=== PATIENT | female | born 1990 | race Caucasian/White ===

== ENCOUNTER → 2024-12-24 07:28 | Outpatient (REF) | payer OTHER, SELFPAY | LOC: REG 07:28 | PROVIDERS: ATTENDING PHYSICIAN Physician Assistant Medical | DX: M54.50 Low back pain, unspecified (principal) | CPT/HCPCS: 72110; 73502 ==

== ENCOUNTER 2025-01-04 11:26 | Emergency (ER) | payer OTHER, SELFPAY ==
[2025-01-04 11:30] VITALS: BP 127/80
[2025-01-04 15:44] VITALS: BP 120/91
--- NOTE | 2025-01-04 16:10 | ED.GENMED ---
History of Present Illness
General
Chief Complaint: Back Pain
Source: patient
Exam Limitations: none
Time Seen by Provider: 01/04/25 15:44
Nursing documentation reviewed up to this point in time: agreed with
History of Present Illness
History of Present Illness:
Patient is a 34-year-old female who presents to the ER complaining of worsening low back pain. She has had low back pain for the past 1 month. She feels pain across the lumbar region and into her left buttocks. She has seen her family doctor and
had an outpatient x-ray. She is scheduled for her first appointment for physical therapy tomorrow and is scheduled for an MRI in February. She has been on 2 separate doses of steroids. Initially she was prescribed a Medrol Dosepak and then
prescribed a second higher tapered dose.
Currently she is taking ibuprofen but reports pain has gotten progressively worse. She denies any recent injections. She had an epidural however that was 5 months ago
She denies any saddle paresthesia she reports she does feel pain in her hips when she walks and she feels at times that her head legs feel heavy. She denies any numbness tingling. Denies any bowel or bladder incontinence.
Denies any trauma fever chills. Denies any abdominal pain urinary frequency urgency dysuria.
She does report that she has 5-month-old twins and she carries both of her twins on each hip.
Pt had tubal ligation with her last in Jul.
Past History
Past History
ED Past Medical History: Psychiatric (Anxiety, Depression) and Other (Internal hemorrhoids, anal fissure, anal pain, Dr. Delicia hawthorne, Ovarian cyst)
ED Past Surgical History: Orthopedic ( Driss Carpal tunnel surgery 2017m leg lift, Cyst removed left wrist), Tonsilectomy and Other (Gastric bypass surgery with duodenal switch in 10/2018, tummy tuck 06/2020 Anal fissure, Breast augmentation, )
Social History
Tobacco: Smoker
Alcohol: None
Personal:
Living: with family
Employment: Employed
Family History
Family History: Other (Noncontributory)
Review of Systems
Review of Systems
Allergies reviewed?: Yes
Other source history: family
All Other Systems: ROS reviewed and negative except as documented in HPI and ROS
Phy Exam
General Physical Exam
General Presentation: no apparent distress
General age: appears stated age
General Skin: warm and dry
General Habitus: normal
General Mental: alert
General Hydration: appears well hydrated
Neurological Exam
Neurological Exam: alert, oriented x3, no motor deficits, no sensory deficits and other (Bilateral patellar reflexes; steady gait)
Jarvis Coma Scale
Eye Opening: Spontaneous
Verbal Response: Oriented
Motor Response: Obeys Commands
GCS Total Score: 15
Musculoskeletal Exam
Musculoskeletal Exam: other (Normal inspection to lumbar region tender throughout the lumbar region and left lateral lumbar region as well, no erythema to back or ecchymosis.)
Skin Exam
Skin Exam: normal color and warm/dry
Psychiatric Exam
Psychiatric Exam: normal mood/affect
Course
Orders/Labs/Results
Orders:
Orders
01/04/25 16:09
Dexamethasone Pf [Decadron] 10 mg PO NOW STA
Ketorolac [Toradol] 30 mg IM NOW STA
Lidocaine [Lidocaine 4% Patch] 1 patch TOPICAL NOW STA
Apply Lidocaine patch(s) to:: lumbar region
diazePAM [Valium Injection] 5 mg IM NOW STA
Vital Signs
Initial and Last Documented VS:
Initial Vital Signs
Temp Pulse Resp BP Pulse Ox
97.7 F 73 18 127/80 100
01/04/25 11:30 01/04/25 11:30 01/04/25 11:30 01/04/25 11:30 01/04/25 11:30
Last Documented Vital Signs
Temp Pulse Resp BP Pulse Ox
97.7 F 66 18 120/91 100
01/04/25 11:30 01/04/25 15:44 01/04/25 16:00 01/04/25 15:44 01/04/25 16:13
MDM/Problems Addressed
Differential Diagnosis Includes:
Not limited to back pain, sciatica, radiculopathy, muscle sprain strain
MDM/Problems Addressed:
symptoms are consistent with back pain, radiculopathy into her left buttocks. She has had back pain for over a month and is scheduled physical therapy tomorrow. She has no deficits on exam and is in no acute distress. She has normal strength to
bilateral lower extremities no saddle paresthesia normal reflexes normal gait in no acute distress. Patient was given steroids along with Toradol Valium lidocaine patch feeling better here will DC with higher dose steroid since this worked with
patient in the past as well as Valium. She is is to start physical therapy tomorrow. Return precautions given.
*Pulse Oximetry
SaO2: 100
Oxygen Mode of Delivery: Room air
Patient hypoxic: no (100)
*Critical Care Note
Total Time (30-74mins, 75-104mins- exclusive of procedures): Not Applicable
ED Attending Note
-
Portions of this chart may have been created with voice recognition software.� Occasional wrong word or��sound alike� substitutions may have occurred due to the inherent limitations of voice recognition software.
Discharge Plan
Departure
Patient Disposition: Home (Routine Discharge)
Date of Disposition: 01/04/25
Time of Disposition: 17:44
Patient with high blood pressure during this ER visit?: Yes
Condition: Fair
Covid-19: Not Applicable
Discharge Problem:
Low back pain
Instructions: Low Back Pain (DC), Radiculopathy (DC), BLOOD PRESSURE
Prescriptions:
New
diazepam [Valium] 5 mg tablet
5 mg PO TID PRN (Reason: muscle spasm) Qty: 10 0RF
prednisone 10 mg Tablet
See Rx Instructions .ROUTE .COMPLEX Qty: 30 0RF
Rx Instructions:
Take By Mouth:
40 mg daily x3 days, 30 mg daily x3 days,
20 mg daily x3 days, 10 mg daily x3 days.
No Action
lorazepam 1 MG tablet
1 mg PO BIDPRN PRN (Reason: anxiety)
ibuprofen 600 MG tablet
600 mg PO Q6H PRN (Reason: pain)
Patient Comments:
months ago per patient
hydrocodone-acetaminophen [[place]] 1 EACH tablet
1 ea PO Q4HPRN PRN (Reason: pain) Qty: 12 0RF
quetiapine 25 MG tablet
75 mg PO HS
buspirone 10 MG tablet
10 mg PO DAILY
hydroxyzine HCl 25 MG tablet
25 mg PO BIDPRN PRN (Reason: anxiety)
vortioxetine [Trintellix] 20 MG tablet
20 mg PO DAILY
hydrocodone-acetaminophen 1 TABLET tablet
1 tab PO Q4HPRN PRN (Reason: moderate to severe pain) Qty: 15 0RF
oxycodone-acetaminophen 5 MG/325 MG tablet
1 - 2 tab PO Q4HPRN PRN (Reason: moderate to severe pain) Qty: 40 0RF
oxycodone-acetaminophen 5 MG/325 MG tablet
1 tab PO Q4HPRN PRN (Reason: pain) Qty: 4 0RF
cefdinir 300 mg capsule
300 mg PO BID Qty: 14 0RF
hydrocortisone acetate [Anusol-HC] 25 mg suppository
25 mg NE BID Qty: 12 0RF
oxycodone-acetaminophen [Percocet] 5-325 mg tablet
1 tab PO Q4H PRN (Reason: Pain) Qty: 7 0RF
albuterol sulfate 90 mcg/actuation HFA aerosol inhaler
2 puff inhalation Q6H PRN (Reason: shortness of breath or wheezing) Qty: 8.5 0RF
acetaminophen-codeine 1 TABLET tablet
1 - 2 tab PO Q6HPRN PRN (Reason: pain) 7 Days Qty: 15 0RF
Referrals:
Becca August PA [Family Provider, Family Practice]
Interventions
Interventions:
*Risk Screen - Suicide Last Done: 01/04/25 11:30
*General Assessment Last Done: 01/04/25 11:30
*Neglect/Abuse Screening Last Done: 01/04/25 11:30
*ED- Fall Risk Assessment Last Done: 01/04/25 15:45
ED-Musculoskeletal Assessment Last Done: 01/04/25 15:46
Discharge Date and Time
Print Language: GUAMANIAN
[2025-01-04] MEDS: TORADOL 30 MG IM (16:22)
[2025-01-04] MEDS: VALIUM INJECTION 5 MG IM (16:23)
[2025-01-04] MEDS: DECADRON 10 MG PO (16:23)
[2025-01-04] MEDS: LIDOCAINE 4% PATCH 1 PATCH TOPICAL (16:23)
== END 2025-01-04 17:56 | disposition home or self-care (01) ==
LOC: EMR 11:26
PROVIDERS: EMERGENCY PHYSICIAN Emergency Medicine; FAMILY PHYSICIAN Physician Assistant Medical
DX: M54.50 Low back pain, unspecified (principal); F17.200 Nicotine dependence, unspecified, uncomplicated; Z98.84 Bariatric surgery status
CPT/HCPCS: 96372; 99284